=== PATIENT | female | born 1960 | race Caucasian/White ===

== ENCOUNTER → 2016-07-22 | Outpatient (CLI) | payer OTHER ==
[~2016-07-22] MED LIST: CEPH500C3 PO; ESTR1 PO; HYDR-2768 PO; LEVO25TA36 PO; SUMA100T2 PO
[2016-07-22 14:39] LABS: MEAN CELL VOLUME 78.2 FL (80.0-100.0); MEAN CORPUSCULAR HEMOGLOBIN 25.3 PG (27.0-34.0); MEAN CORPUSCULAR HGB CONC 32.3 % (32.0-36.0); PLATELET COUNT 408 TH/MM3 (150-450); RED BLOOD COUNT 4.73 MIL/MM3 (4.00-5.30); RED CELL DISTRIBUTION WIDTH 14.6 % (11.6-17.2); REVIEW FLAG FINAL; WHITE BLOOD COUNT 9.2 TH/MM3 (4.0-11.0)
[2016-07-22 15:02] LABS: ALKALINE PHOSPHATASE 98 U/L (45-117); HDL CHOLESTEROL 67.8 MG/DL (40.0-60.0); TOTAL BILIRUBIN ADULT 0.2 MG/DL (0.2-1.0)
[2016-07-22 15:07] LABS: ALT (GPT) 18 U/L (10-53); ANION GAP 10 MEQ/L (5-15); AST (GOT) 17 U/L (15-37); BICARBONATE 28.5 MEQ/L (21.0-32.0); BLOOD UREA NITROGEN 11 MG/DL (7-18); CHLORIDE 100 MEQ/L (98-107); GLOMERULAR FILTRATION RATE 79 ML/MIN (>89); GLUCOSE,FASTING 88 MG/DL (74-99); LDL CHOLESTEROL 138 MG/DL (0-99); POTASSIUM 3.9 MEQ/L (3.5-5.1); SODIUM (NA) 138 MEQ/L (136-145)
== END ==
LOC: CLAB 14:17
PROVIDERS: ATTEND Family Medicine
DX: E78.2 Mixed hyperlipidemia (principal); E03.9 Hypothyroidism, unspecified; I10 Essential (primary) hypertension; E66.9 Obesity, unspecified
CPT/HCPCS: 36415; 80053; 80061; 85027

== ENCOUNTER → 2017-01-26 | Day surgery (SDC) | payer OTHER ==
[~2017-01-26] MED LIST changes: +LACTATED RINGER'S 1000 ML INJ 1,000 ML ONE; +PROPOFOL 200 MG/20 ML AMP IV ONE
--- NOTE | 2017-01-26 12:52 | GIPROC ---
[facility] [address] [facility], [address] EGD PROCEDURE REPORT EXAM DATE: 01/26/2017 PATIENT NAME: Karol Cordero MR #: [id number] BIRTHDATE: 1960 ATTENDING: Stacy Champion MD ORDER #: [id number] SUPERVISOR DAIRY SANITATION: STATUS: outpatient INDICATIONS: The patient is a 56 yr old female here for an EGD due to dysphagia PROCEDURE PERFORMED: EGD w/ biopsy EGD w/ dilation of esophagus via guidewire MEDICATIONS: None and Per Anesthesia. TOPICAL ANESTHETIC: none CONSENT: The patient understands the risks and benefits of the procedure and understands that these risks include, but are not limited to: sedation, allergic reaction, infection, perforation and/or bleeding. Alternative means of evaluation and treatment include, among others: physical exam, x-rays, and/or surgical intervention. The patient elects to proceed with this endoscopic procedure. medical equipment was checked for proper function. Hand hygiene and appropriate measures for infection prevention was taken. After the risks, benefits and alternatives of the procedure were thoroughly explained, Informed consent was verified, confirmed and timeout was successfully executed by the treatment team. The patient was anesthetized with topical anesthesia and the EG-[id number] ([id number]) endoscope was introduced through the mouth and advanced to the second portion of the duodenum. Retroflexed views revealed a hiatal hernia The gastroscope was then slowly withdrawn and removed. Duodenitis duodenal bulb-biopsy gastrtiis antrum-biopsy irregular z line-biopsy spasm distal esophagus-. Dilatation using Savary dilator 17. ADVERSE EVENTS: There were no complications. IMPRESSIONS: 1. Duodenitis duodenal bulb-biopsy gastrtiis antrum-biopsy irregular z line-biopsy spasm distal esophagus- 2. Retroflexed views revealed a hiatal hernia RECOMMENDATIONS: 1. Await biopsy results. Biopsy results will not be ready for 7-10 days. If you don't hear from us in two weeks, call our office for biopsy results. 2. Anti-reflux regimen 3. Continue PPI 4. Start PPI 5. Dilatations PRN 6. If no improvement consider esophageal manometry PATIENT CONDITION: stable DISPOSITION: Home REPEAT EXAM: EGD pending biopsy results Stacy Champion MD eSigned: Stacy Champion MD 01/26/2017 12:51 PM cc: Cosme Amado [facility] Fide Perez M.D. PATIENT NAME: Karol Cordero MR#: [id number]
== END | disposition home or self-care (01) ==
LOC: ESDC 10:05
PROVIDERS: ATTEND Internal Medicine Gastroenterology
DX: R13.10 Dysphagia, unspecified (principal); K44.9 Diaphragmatic hernia without obstruction or gangrene; K29.80 Duodenitis without bleeding; K29.70 Gastritis, unspecified, without bleeding; K22.9 Disease of esophagus, unspecified; K22.4 Dyskinesia of esophagus
CPT/HCPCS: 00740; 43239; 43248; 88305; 88312; J3010; J7120

== ENCOUNTER → 2017-07-07 | Outpatient (CLI) | payer OTHER ==
[~2017-07-07] MED LIST changes: -LACTATED RINGER'S 1000 ML INJ 1,000 ML ONE; -PROPOFOL 200 MG/20 ML AMP IV ONE
[2017-07-07 08:11] LABS: BASOPHIL % 0.5 % (0.0-2.0); EOSINOPHIL # 0.2 TH/MM3 (0-0.4); EOSINOPHIL % 2.4 % (0.0-4.0); HEMATOCRIT 34.7 % (35.0-46.0); HEMOGLOBIN 11.8 GM/DL (11.6-15.3); LYMPH % 34.6 % (9.0-44.0); LYMPHOCYTE # 3.1 TH/MM3 (1.0-4.8); MEAN CELL VOLUME 80.7 FL (80.0-100.0); MEAN CORPUSCULAR HEMOGLOBIN 27.4 PG (27.0-34.0); MONO % 6.8 % (0.0-8.0); MONOCYTE # 0.6 TH/MM3 (0-0.9); NEUT % 55.7 % (16.0-70.0); PLATELET COUNT 361 TH/MM3 (150-450)
[2017-07-07 08:12] LABS: ALBUMIN 3.4 GM/DL (3.4-5.0); AST (GOT) 17 U/L (15-37); BICARBONATE 31.3 MEQ/L (21.0-32.0); BLOOD UREA NITROGEN 17 MG/DL (7-18); CALCIUM 8.9 MG/DL (8.5-10.1); CHLORIDE 104 MEQ/L (98-107); CHOLESTEROL 221 MG/DL (120-200); CREATININE 0.79 MG/DL (0.50-1.00); GLOMERULAR FILTRATION RATE 75 ML/MIN (>89); GLUCOSE,FASTING 95 MG/DL (74-99); SODIUM (NA) 140 MEQ/L (136-145)
[2017-07-07 08:15] LABS: ALKALINE PHOSPHATASE 91 U/L (45-117); ALT (GPT) 15 U/L (10-53); CHOLESTEROL/ HDL RATIO 3.99 RATIO; HDL CHOLESTEROL 55.3 MG/DL (40.0-60.0); LDL CHOLESTEROL 139 MG/DL (0-99); TOTAL BILIRUBIN ADULT 0.2 MG/DL (0.2-1.0); TOTAL PROTEIN 7.7 GM/DL (6.4-8.2); TRIGLYCERIDES 134 MG/DL (42-150)
== END ==
LOC: CLAB 07:39
PROVIDERS: ATTEND Family Medicine
DX: R73.02 Impaired glucose tolerance (oral) (principal); I10 Essential (primary) hypertension; E78.2 Mixed hyperlipidemia
CPT/HCPCS: 36415; 80053; 80061; 85025

== ENCOUNTER → 2017-07-14 | Outpatient (CLI) | payer OTHER ==
[~2017-07-14] MED LIST changes: +ESTR2TAB PO; +HYDR25TA5 PO; +IMIT100T PO; +LEVO50TA4 PO; +VENL25TA PO
[2017-07-14 13:05] LABS: BILIRUBIN, URINE NEG (NEG); BLOOD, URINE NEG (NEG); GLUCOSE,URINE NEG (NEG); KETONE, URINE NEG (NEG); NITRITE,URINE NEG (NEG); SQUAMOUS EPITHELIAL CELL URINE 1 /hpf (0-5); URINE COLOR LIGHT-YELLOW (YELLW/STRAW); URINE LEUKOCYTE ESTERASE NEG (NEG)
--- NOTE | 2017-07-15 22:13 | EKG ---
Date Performed: 07/14/2017 Time Performed: 12:14:50 PTAGE: 56 years EKG: Sinus rhythm . Possible anteroseptal infarct - age undetermined Low QRS voltages in precordial leads Abnormal ECG Compared to prior tracing no significant change DOCTOR: Dena Dalton Interpretating Date/Time 07/15/2017 22:13:13
== END ==
LOC: CPRE 11:07
PROVIDERS: ATTEND Obstetrics & Gynecology
DX: Z01.812 Encounter for preprocedural laboratory examination (principal); Z01.810 Encounter for preprocedural cardiovascular examination; N81.10 Cystocele, unspecified; R32 Unspecified urinary incontinence
CPT/HCPCS: 36415; 81001; 86850; 86900; 86901; 93005

== ENCOUNTER 2017-07-16 05:28 | Observation (INO) | payer OTHER ==
--- NOTE | 2017-07-14 10:40 | MH ---
cc: GEE VELASQUEZ JESSICA GOLDSTEIN DATE OF ADMISSION: 07/16/2017 DATE OF 1960 CHIEF COMPLAINT Recurrence of significant stress incontinence and bleeding from a residual cervix status post LASH and BSO. HISTORY OF PRESENT CONDITION The patient is a 56-year-old single white female, 1, para 1, status post a laparoscopically assisted supracervical hysterectomy with a TOT and cystocele repair. She later underwent a BSO (bilateral salpingo-oophorectomy). The surgeries were essentially uneventful, the last being in 2012. However, she has gradually developed a recurrence of her stress incontinence and has noted some bleeding from the remaining cervix. She is on 2 mg of estrogen p.o. daily. PAST MEDICAL HISTORY 1. Her general health is otherwise good. 2. She is anticipating a cholecystectomy in the near future. 3. She has hypothyroidism for which she takes Levothyroxine 30 mcg a day. 4. She takes Imitrex on an as-needed basis for headaches. 5. She is on venlafaxine for a mild depression. 6. Hydrochlorothiazide 25 mg daily. ALLERGIES LATEX. HABITS She does not smoke, drink or use illicit drugs. PRIMARY CARE PHYSICIAN Dr. Goldstein. REVIEW OF SYSTEMS Her incontinence is significant; she loses urine when she coughs, laughs or sneezes. She does not have nocturia, hematuria, pyuria or pain with urination. SOCIAL HISTORY She is not involved with anybody at this time. Currently she is living with her parents and helping to care for them. PHYSICAL EXAMINATION GENERAL: On physical she is a well-developed, well-nourished white female in no acute distress. VITAL SIGNS: Her weight is 175. Her height is 5'4", her blood pressure is 136/82. NECK: She had no thyroid enlargement. A slight diffuse swelling on the right side which has been stable for sometime. LUNGS: Clear to auscultation. HEART: Rate and rhythm are regular without murmur, heave or thrills. BREASTS: At a previous exam were without dominant mass, nipple discharge or skin retraction. ABDOMEN: Benign. She has no hernias. No hepatosplenomegaly. No CVA tenderness. She has no inguinal adenopathy. PELVIC: The perineum is well-estrogenized. The vault is fairly well elevated. The bladder comes down to about a second to third degree. The tape is in place without erosion or granulation tissue but the bladder descends directly behind the pain with any Valsalva. The cervix is multiparous without lesions. She had no significant rectocele. RECTAL: Guaiac was negative at a previous exam. No significant hemorrhoids. EXTREMITIES: Unremarkable. IMPRESSION Recurrence of stress urinary incontinence seven years after placement of a TOT. Spotting from the cervix left after a LASH. PLAN The plan is to proceed with laparoscopically assisted trachelectomy and revision of her cystocele and placement of a second transobturator tape using the Solyx method posterior to the one that is first in place. The risks, benefits and expectations have been discussed. She knows there is a risk of damage to bowel, bladder, blood vessels, there could be complications of medication and anesthesia up to and including . She understands that the laparoscope will be used to make sure that bowel was not adherent to the cervix which we have decided to remove. She understands that any tape can cause granulation, erosion and chronic pain and dyspareunia. She understands there is no guarantee that the tape will address her incontinence and has a slight risk of retention. She has signed consents and is scheduled for morning. MD ADRIAN Pablo/SSB /9:44 AM /10:04 AM
[~2017-07-16] VITALS: Ht 162.6 cm; Wt 80.0 kg
[~2017-07-16 05:28] MED LIST changes: -CEPH500C3 PO; -ESTR1 PO; -HYDR-2768 PO; -LEVO25TA36 PO; -SUMA100T2 PO
[2017-07-16] MEDS ORDERED: CHLORHEXIDINE GLUCONATE 2 % 1 PACK (2 CLOTHS) TOPICAL PRN (06:15)
[2017-07-16] MEDS ORDERED: ceFAZolin 2 GM PREMIX 50 ML IV SCH (06:15)
[2017-07-16] MEDS ORDERED: SODIUM CHLORID 0.9% 500 ML IV PRN (06:15)
[2017-07-16] MEDS ORDERED: POVIDONE IODINE 5% (ANTISEPSIS KIT) 4 APPLICATIONS EACH NARE PRN (06:15)
[2017-07-16] MEDS ORDERED: METOPROLOL TARTRATE 25 MG TAB PO PRN (06:15)
[2017-07-16] MEDS ORDERED: LACTATED RINGER'S 1000 ML IV PRN (06:15)
[2017-07-16] MEDS ORDERED: INSULIN HUMAN REGULAR 1,000 UNITS/10 ML VIAL SQ PRN (06:15)
[2017-07-16] MEDS ORDERED: BUPIVACAINE/EPINEPHRINE 0.25% PF 30 ML VIAL ONE (07:01)
[2017-07-16] MEDS ORDERED: ESTROGENS CONJUGATED VAG CREA 15 APPL/30 GM TUBE ONE (07:01)
[2017-07-16] MEDS ORDERED: VASOPRESSIN 20 UNITS/ML VIAL (IVTITR) ONE (07:01)
[2017-07-16] MEDS ORDERED: ceFAZolin INJ 1,000 MG VIAL ONE (07:02)
[2017-07-16] MEDS ORDERED: APREPITANT 40 MG CAP ONE (07:14)
[2017-07-16] MEDS ORDERED: ACETAMINOPHEN 1000 MG/100 ML 100 ML IV ONE (07:14)
--- NOTE | 2017-07-16 09:13 | PD.OP ---
Operative Report Date of Surgery: Jul 16, 2017 Preoperative Diagnosis: LINDA--recurrent pelvic pressure bleeding from cervical stump Postoperative Diagnosis: same Procedure: laparoscopic assisted trachelectomy enterocele obliteration TOT with solyx cystocoele repair cystoscopy Anesthesia: GET Surgeon: Anne Snow Take Away Man(s): OR staff Operation and Findings: Anne Carroll MD Jul 16, 2017 09:13
[2017-07-16] MEDS ORDERED: oxyCODONE/ACETAMINOPHEN 5 MG/325 MG TAB PO PRN ×2 (09:30)
[2017-07-16] MEDS ORDERED: LORazepam 0.5 MG TAB PO PRN (09:30)
[2017-07-16] MEDS ORDERED: ONDANSETRON HCL 4 MG/2 ML VIAL IVP PRN ×2 (09:30)
[2017-07-16] MEDS ORDERED: SODIUM CHLORIDE 0.9% FLUSH 10 ML FLUSH IV FLUSH PRN (09:30)
[2017-07-16] MEDS ORDERED: ZOLPIDEM TARTRATE 5 MG TAB PO PRN (09:30)
[2017-07-16] MEDS ORDERED: diphenhydrAMINE HCL 25 MG CAP PO PRN (09:30)
--- NOTE | 2017-07-16 09:30 | HHI.DCPOC ---
Discharge Care Plan Report Symptoms to Your Doctor -Temperature above 100.5 degrees -Redness, of incision or excessive or foul smelling drainage -Unusual pain or calf pain -Increased vaginal bleeding -Painful or difficulty urinating -Feelings of extreme sadness or anxiety after 2 weeks Goals to Promote Your Health * To prevent worsening of your condition and complications * To maintain your health at the optimal level Directions to Meet Your Goals Take your medications as prescribed Follow your dietary instruction Follow activity as directed Ensure plenty of rest for recovery Drink fluids for hydration Keep your appointments as scheduled Take your immunizations and boosters as scheduled If your symptoms worsen call your PCP, if no PCP go to Urgent Care Center or Emergency Room Smoking is Dangerous to Your Health. Avoid second hand smoke Call the 24-hour crisis hotline for domestic abuse at Anne Snow MD Jul 16, 2017 09:30
[2017-07-16] MEDS ORDERED: *HYDROmorphone PF 1 MG VIAL PERIprocedural Use ONLY ONE ×2 (09:38→09:54)
[2017-07-16] MEDS ORDERED: *RESP: ALBUTEROL 2.5 MG/3 ML NEB (PRN) PERIprocedural Use ONLY NEB ONE (09:39)
[2017-07-16] MEDS ORDERED: MIDAZOLAM HCL 2 MG/2 ML VIAL ONE (09:59)
[2017-07-16] MEDS: LACTATED RINGER'S 1000 ML INJ 1,000 ML IV SCH ×2 (10:00→18:03)
[2017-07-16] MEDS ORDERED: DO NOT ADM ANY ANTICOAGULANT DRUGS PRN (10:15)
[2017-07-16] MEDS ORDERED: MIDAZOLAM HCL 5 MG/5 ML VIAL ONE (10:18)
[2017-07-16] MEDS ORDERED: MIDAZOLAM HCL 2 MG/2 ML VIAL IV PUSH ONE (11:30)
[2017-07-16] MEDS ORDERED: MIDAZOLAM HCL 2 MG/2 ML VIAL IV PUSH PRN (11:40)
--- NOTE | 2017-07-16 12:24 | MP ---
cc: RONANNE DATE OF 1960 DATE OF PROCEDURE July 16, 2017. PREOPERATIVE DIAGNOSES 1. Stress urinary incontinence. 2. Cystocele. 3. Descent of the cervical stump and some bleeding from the cervical stump. POSTOPERATIVE DIAGNOSES 1. Stress urinary incontinence. 2. Cystocele. 3. Descent of the cervical stump and some bleeding from the cervical stump. PROCEDURE 1. Laparoscopically assisted trachelectomy. 2. Enterocele obliteration. 3. Transobturator tape using the Solyx single incision approach. 4. Cystocele repair. 5. Cystoscopy. ANESTHESIA General. SURGEON MD Ron AUTOMOTIVE COLLISION ESTIMATOR OR staff. FINDINGS Examination under anesthesia revealed a cervix that could be brought down to the fourchette, a second-degree urethrocele. Upon entering the peritoneal cavity, the cervix was not adherent to any tissues whatsoever so the approach was taken entirely vaginally, then the scope was removed. The cervix was removed with two bites on each side and sent for pathology. The enterocele was obliterated and the uterosacrals were plicated and the cavity closed with Vicryl in a running interlocking fashion. The vaginal mucosa was in the midline, dissected off the bladder beneath the pubic symphysis and the Solyx tape placed without difficulty. Cystoscopy was then performed which showed no iatrogenic injury or intrinsic pathology. There was good flow from both ureteral orifices and no visible tape or suture in the bladder. The plicating sutures were then placed underneath to the elevate the bladder and then the vaginal mucosa was closed. A repeat look with the laparoscope showed no evidence of iatrogenic injury or bleeding. Sponge, instrument and needle counts were correct well. Blood loss was 150 cc. She tolerated the procedure well and went to the recovery room stable. PROCEDURE The patient was counseled in preop. She was taken to the operating room, placed under general endotracheal anesthesia in the dorsal lithotomy position. Time-out was performed. She was prepped and draped in the usual sterile fashion. She had sequential stockings on. She had received 2 grams of Ancef IV. The Castellon was placed sterilely. Examination under anesthesia was performed and the cervix was grasped and acorn tenaculum placed into the intracervical os. Attention was directed to the abdomen with fresh gloves. A small incision was made just above where her umbilicus had been (she is status post abdominoplasty)and then the 5-mm trocar and sleeve were placed under direct visualization. The pneumoperitoneum was created, another 5-mm trocar and sleeve were placed in the right and left lower quadrant. Each one of these had infiltration of lidocaine prior to the incision and then transabdominal illumination was done to avoid the branches of the inferior epigastrics. Systematic evaluation of the abdominal and pelvic contents revealed what appeared to be a normal gallbladder, although we know otherwise, an absence of uterus, tubes and ovaries. The cervix was small, not attached to the bladder. The cul-de-sacs and the underside were clean. Decision was made to perform the trachelectomy entirely from below. The abdominal instruments were left in place. Attention was directed toward the perineum. A weighted speculum was placed. The anterior vagina was elevated. The cervix was grasped with single-tooth tenaculum, infiltrated with Marcaine with epi. It was circumcised with a Bovie on cutting and then the anterior and posterior cul-de-sacs were entered sharply. Curved Miguel clamps were used to grasp the uterosacrals which were clamped, cut, tied and tagged. A second pedicle was created on either side and the cervix was removed. The enterocele was obliterated and a dog ear of vaginal mucosa removed and then the peritoneal cavity was closed. The uterosacrals were plicated. The mucosa was then closed in a running interlocking fashion. Then Allis clamps were used to grasp 1 cm below the urethra and at the apex of the vagina and then an incision was made with Bovie on cutting through the mucosa. Gentle digital dissection was done to separate the mucosa from the underlying scarred bladder. This was taken underneath the symphysis on either side. The Solyx was opened and then attached to the introducer and placed through the right urogenital diaphragm without difficulty, directing it toward the right axilla and then on the left with the midline placed in the midline. It was flush against the urethra but not with any tension. A sponge was placed and then the Castellon catheter was removed. The 30-degree scope was placed into the bladder and systematic evaluation revealed an absence of entry into the bladder with any instrumentation and ureteral flow from both orifices. There was no evidence of interstitial cystitis. The scope was removed. The Castellon was replaced and the plicating sutures were placed to elevate the bladder. Then the vaginal mucosa was closed in a running interlocking fashion. Repeat cystoscopy was performed since we did have the scope and routine laparoscopy was performed and irrigation of the pelvic floor was done. The vaginal cuff was cleaned. The cul-de-sacs looked clean. There was no evidence of any other concerns. The pneumoperitoneum was released under direct visualization. The incisions were closed with a single suture of Monocryl. She was placed in dorsal supine position with a Castellon in place and taken to the recovery room in stable condition. Anne Snow MD PPC/SSB /9:12 AM /11:46 AM
[2017-07-16 12:30] VITALS: BP 111/59; PULSE 71; RESP 20; TEMP 97.6; O2SAT 96
[2017-07-16] MEDS: HYDROmorphone HCL PF 2 MG/ML VIAL IV PUSH PRN ×2 (13:47→18:03)
[2017-07-16] MEDS: IBUPROFEN 600 MG TAB PO PRN ×2 (15:35→20:57)
[2017-07-16 16:00] VITALS: BP 107/55; PULSE 104; RESP 18; TEMP 98; O2SAT 97
[2017-07-16] MEDS ORDERED: ONDANSETRON INJ 8 MG in DEXTROSE 5% IN WATER INJ 50 ML IV PUSH PRN ×2 (16:00)
[2017-07-16 20:00] VITALS: BP 106/64; PULSE 68; RESP 20; TEMP 97.5; O2SAT 96
[2017-07-16] MEDS: DOCUSATE SODIUM 100 MG CAP PO SCH (20:57)
[2017-07-16] MEDS ORDERED: SODIUM CHLORIDE 0.9% FLUSH 10 ML FLUSH IV FLUSH SCH (21:00)
[2017-07-17] VITALS: BP 99/52; PULSE 64; RESP 18; TEMP 97.9; O2SAT 96
[2017-07-17 04:00] VITALS: BP 98/51; PULSE 56; RESP 18; TEMP 97.7; O2SAT 98
[2017-07-17] MEDS: IBUPROFEN 600 MG TAB PO PRN ×2 (04:05→13:15)
[2017-07-17 06:14] LABS: BICARBONATE 29.4 MEQ/L (21.0-32.0); CALCIUM 8.9 MG/DL (8.5-10.1); CREATININE 0.74 MG/DL (0.50-1.00)
[2017-07-17 08:19] VITALS: BP 99/65; PULSE 58; RESP 16; TEMP 98.1; O2SAT 97
[2017-07-17 08:20] LABS: AUTOMATED NEUTROPHIL # 7.8 TH/MM3 (1.8-7.7); BASOPHIL % 0.3 % (0.0-2.0); EOSINOPHIL % 0.3 % (0.0-4.0); HEMATOCRIT 32.3 % (35.0-46.0); HEMOGLOBIN 10.7 GM/DL (11.6-15.3); LYMPH % 24.1 % (9.0-44.0); LYMPHOCYTE # 2.7 TH/MM3 (1.0-4.8); MEAN CELL VOLUME 81.4 FL (80.0-100.0); MEAN CORPUSCULAR HEMOGLOBIN 26.9 PG (27.0-34.0); MONO % 5.2 % (0.0-8.0); MONOCYTE # 0.6 TH/MM3 (0-0.9); NEUT % 70.1 % (16.0-70.0); PLATELET COUNT 307 TH/MM3 (150-450); RED BLOOD COUNT 3.97 MIL/MM3 (4.00-5.30); RED CELL DISTRIBUTION WIDTH 14.6 % (11.6-17.2); WHITE BLOOD COUNT 11.1 TH/MM3 (4.0-11.0)
--- NOTE | 2017-07-17 09:08 | HHI.OB ---
Subjective Post Operative Day: 1 Remarks Waiting to void doing well with no bleeding minimal discomfort Objective Vitals/I&O Vital Signs Date Time Temp Pulse Resp B/P (MAP) Pulse Ox O2 Delivery O2 Flow Rate FiO2 07/17/17 08:19 98.1 58 16 99/65 (76) 97 07/17/17 04:00 97.7 56 18 98/51 (67) 98 07/17/17 00:00 97.9 64 18 99/52 (68) 96 07/16/17 20:00 97.5 68 20 106/64 (78) 96 07/16/17 16:00 98.0 104 18 107/55 (72) 97 07/16/17 12:30 97.6 71 20 111/59 (76) 96 07/16/17 11:45 97.5 71 16 106/62 (77) 99 Nasal Cannula 2 07/16/17 11:30 68 16 108/60 (76) 98 Nasal Cannula 2 07/16/17 11:15 65 15 105/59 (74) 98 Nasal Cannula 2 07/16/17 11:00 63 15 110/58 (75) 98 Nasal Cannula 2 07/16/17 10:45 60 15 114/62 (79) 99 Nasal Cannula 2 07/16/17 10:30 63 15 117/58 (77) 99 Nasal Cannula 2 07/16/17 10:24 15 07/16/17 10:15 74 15 114/54 (74) 99 Nasal Cannula 2 07/16/17 10:08 15 07/16/17 10:00 85 15 128/59 (82) 98 Nasal Cannula 2 07/16/17 09:45 83 15 133/64 (87) 100 Nasal Cannula 3 07/16/17 09:30 98.4 90 15 139/71 (93) 99 Nasal Cannula 3 Intake & Output 07/17/17 07/17/17 07:00 19:00 Output Total 2200 ml Balance -2200 ml Output Urine Total 2200 ml Result Diagram: 07/17/17 0733 07/17/17 0456 Objective Remarks GENERAL: Well-nourished, well-developed patient. CARDIOVASCULAR: Regular rate and rhythm without murmurs, gallops, or rubs. RESPIRATORY: Breath sounds equal bilaterally. No accessory muscle use. ABDOMEN/GI: Abdomen soft, non-tender, bowel sounds present. Incision: Clean, dry and intact. Fundus: Firm, non-tender at umbilicus. GENITOURINARY: Light to moderate bleeding. EXTREMITIES: No cyanosis or edema, non-tender, without signs of DVT. Medications and IVs Current Medications Medications (Trade) Dose Ordered Sig/Robb Route Start Time Stop Time Status Last Admin Cefazolin Sodium/ Dextrose 50 ml @ 100 mls/hr DYNAMO REPAIRER IV 07/16/17 06:15 07/19/17 06:14 07/16/17 06:38 (Lopressor) 25 mg DYNAMO REPAIRER PRN PO 07/16/17 06:15 07/19/17 06:14 (Betadine 5% Antisepsis Kit) 1 applic DYNAMO REPAIRER PRN EACH NARE 07/16/17 06:15 07/19/17 06:14 (Chlorhexidine 2% Cloth) 3 pack DYNAMO REPAIRER PRN TOPICAL 07/16/17 06:15 07/19/17 06:14 07/16/17 06:00 Lactated Ringer's 1,000 ml @ 125 mls/hr Q8H IV 07/16/17 09:22 07/16/17 18:03 (NS Flush) 2 ml UNSCH PRN IV FLUSH 07/16/17 09:30 (NS Flush) 2 ml BID IV FLUSH 07/16/17 21:00 (Motrin) 600 mg Q6H PRN PO 07/16/17 09:30 07/17/17 04:05 (Percocet 5-325 Mg) 1 tab Q4H PRN PO 07/16/17 09:30 07/17/17 04:05 (Percocet 5-325 Mg) 2 tab Q4H PRN PO 07/16/17 09:30 07/17/17 00:08 (Benadryl) 25 mg Q6H PRN PO 07/16/17 09:30 (Colace) 100 mg Q12H PO 07/16/17 21:00 07/16/17 20:57 (Ambien) 5 mg HS PRN PO 07/16/17 09:30 (Ativan) 0.25 mg Q8H PRN PO 07/16/17 09:30 (Dilaudid Pf Inj) 0.5 mg Q4H PRN IV PUSH 07/16/17 09:30 07/16/17 18:03 Miscellaneous Information ALL NURSING DEPARTME... UNSCH PRN .XX 07/16/17 10:15 07/17/17 10:14 Ondansetron HCl 8 mg/Dextrose 54 ml @ 216 mls/hr Q8H PRN IV PUSH 07/16/17 16:00 Assessment/Plan Problem List: (1) Post-operative state ICD Codes: Z98.890 - Other specified postprocedural states Assessment and Plan just voided 400 and can be discharged when comfortable shower and ambulate first then home Anne Snow MD Jul 17, 2017 09:08
[2017-07-17] MEDS: DOCUSATE SODIUM 100 MG CAP PO SCH (09:52)
[2017-07-17] MEDS: LACTATED RINGER'S 1000 ML INJ 1,000 ML IV SCH (09:57)
[2017-07-17 11:00] VITALS: BP 113/62; PULSE 71
== END 2017-07-17 15:20 | disposition home or self-care (01) ==
LOC: HSDC 05:28 → HSDI 09:28 → H1EA 11:51
PROVIDERS: ADMIT Obstetrics & Gynecology; ATTEND Obstetrics & Gynecology
DX: N39.3 Stress incontinence (female) (male) (principal); N99.3 Prolapse of vaginal vault after hysterectomy; I10 Essential (primary) hypertension; E78.5 Hyperlipidemia, unspecified
CPT/HCPCS: 00860; 57240; 57288; 57530; 80048; 85025; 88305; 94664; 96374; 96376; C1771; G0378; J0131; J0690; J1170; J2250; J3010; J7120; J7613; J8501

== ENCOUNTER → 2017-08-12 | Day surgery (SDC) | payer OTHER ==
[~2017-08-12] VITALS: Ht 162.6 cm; Wt 78.6 kg
[~2017-08-12] MED LIST changes: +ACETAMINOPHEN 1000 MG/100 ML 100 ML IV PRN; +ACETAMINOPHEN/HYDROcodone 325 MG/5 MG TAB PO PRN; +BUPIVACAINE/EPINEPHRINE 0.25% 50 ML VIAL ONE; +CHLORHEXIDINE GLUCONATE 2 % 1 PACK (2 CLOTHS) TOPICAL PRN; +DEXAMETHASONE SOD PHOS 4 MG/ML VIAL IV ONE; +DO NOT ADM ANY ANTICOAGULANT DRUGS PRN; +ESMOLOL HCL 100 MG/10 ML VIAL IV ONE; +FAMOTIDINE 20 MG/2 ML VIAL ONE; +FISHCAP4 PO; +GLYCOPYRROLATE 1 MG/5 ML SYRINGE IV PUSH ONE; +HYDROmorphone HCL PF 2 MG/ML VIAL ONE; +KETOROLAC TROMETHAMINE 30 MG/ML (IVP) VIAL IV PUSH ONE; +LACTATED RINGER'S 1000 ML IV PRN; +METOPROLOL TARTRATE 25 MG TAB PO PRN; +MIDAZOLAM HCL 2 MG/2 ML VIAL ONE; +NEOSTIGMINE 5 MG/5 ML SYRINGE IV PUSH ONE; +ONDANSETRON HCL 4 MG/2 ML VIAL IV ONE; +ONDANSETRON HCL 4 MG/2 ML VIAL IV PUSH PRN; +PHENYLEPH/NS 1000 MCG/10 ML SYR IV ONE; +POVIDONE IODINE 5% (ANTISEPSIS KIT) 4 APPLICATIONS EACH NARE PRN; +PROPOFOL 200 MG/20 ML AMP IV ONE; +RESP: ALBUTEROL 2.5 MG/3 ML NEB (PRN) ONE; +REST0.05 EACH EYE; +ROCURONIUM INJ 50 MG/5 ML SYRINGE IV PUSH ONE; +SODIUM CHLORID 0.9% 500 ML IV PRN; +VANCOMYCIN 1 GM/200 ML PREMIX ON-CALL IV SCH; +VITA200013 PO; +[UNRECOGNIZED DRUG - CODE] PO; +ceFAZolin 1,000 MG/NS 100 ML IV SCH
[2017-08-12 07:22] LABS: AUTOMATED NEUTROPHIL # 5.3 TH/MM3 (1.8-7.7); BASOPHIL # 0.1 TH/MM3 (0-0.2); BASOPHIL % 0.7 % (0.0-2.0); EOSINOPHIL # 0.6 TH/MM3 (0-0.4); EOSINOPHIL % 7.1 % (0.0-4.0); HEMATOCRIT 38.1 % (35.0-46.0); HEMOGLOBIN 12.8 GM/DL (11.6-15.3); LYMPH % 26.6 % (9.0-44.0); LYMPHOCYTE # 2.4 TH/MM3 (1.0-4.8); MEAN CELL VOLUME 80.7 FL (80.0-100.0); MEAN CORPUSCULAR HEMOGLOBIN 27.1 PG (27.0-34.0); MEAN CORPUSCULAR HGB CONC 33.6 % (32.0-36.0); MEAN PLATELET VOLUME 7.8 FL (7.0-11.0); MONO % 5.4 % (0.0-8.0); MONOCYTE # 0.5 TH/MM3 (0-0.9); NEUT % 60.2 % (16.0-70.0); PLATELET COUNT 341 TH/MM3 (150-450); RED BLOOD COUNT 4.72 MIL/MM3 (4.00-5.30); RED CELL DISTRIBUTION WIDTH 14.6 % (11.6-17.2); WHITE BLOOD COUNT 8.9 TH/MM3 (4.0-11.0)
[2017-08-12 07:45] LABS: ALBUMIN 3.4 GM/DL (3.4-5.0); BICARBONATE 26.8 MEQ/L (21.0-32.0); CALCIUM 9.5 MG/DL (8.5-10.1); CREATININE 0.74 MG/DL (0.50-1.00); DIRECT BILIRUBIN ADULT 0.1 MG/DL (0.0-0.2)
[2017-08-12 07:48] LABS: INDIRECT BILIRUBIN 0.1 MG/DL (0.0-0.8); TOTAL BILIRUBIN ADULT 0.2 MG/DL (0.2-1.0); TOTAL PROTEIN 7.8 GM/DL (6.4-8.2)
--- NOTE | 2017-08-12 09:34 | HHI.PR ---
cc: Stacy Champion MD; Geoffrey Austin MD; Maycol Perez MD Immediate Post Op Note Procedure Date: Aug 12, 2017 Pre Op Diagnosis: Gallstones with biliary colic Fatty liver changes Post Op Diagnosis: Same Surgeon: Geoffrey Austin [employer]gr[employer] Location Manager(s): SAMAN Funes Procedure: Laparoscopic cholecystectomy Laparoscopic Silverio-cut liver biopsy Complications: None Specimen(s) removed: Gallbladder and contents Silverio-cut liver biopsy cores Estimated blood loss: 50 ml Anesthesia: General Drains: None IVF (1000 ml) Patient to: PACU Patient Condition: Good Date/Time of Procedure: SEE SURGICAL CARE RECORD Geoffrey Austin MD Aug 12, 2017 09:34
--- NOTE | 2017-08-12 10:47 | RADRPT ---
EXAM DATE/TIME: 08/12/2017 09:44 [place] COMPARISON: No previous studies available for comparison. INDICATIONS : Evaluate for aspiration. Patient short of breath post lap cholecystectomy. MEDICAL HISTORY : None. SURGICAL HISTORY : None. ENCOUNTER: Initial ACUITY: 1 day PAIN SCORE: 0/10 LOCATION: Bilateral FINDINGS: A single view of the chest demonstrates the lungs to be symmetrically aerated without evidence of mas s, infiltrate or effusion. The cardiomediastinal contours are unremarkable. Osseous structures are intact. CONCLUSION: No acute disease. Andreas Spaulding MD FACR on August 12, 2017 at 10:45 Board Certified Radiologist. This report was verified electronically.
--- NOTE | 2017-08-12 11:40 | MP ---
cc: MEDARDO GARCIA M.D., ANTHONY BRATU, BEATRICE S. M.D. DATE OF SURGERY 08/12/2017 PROCEDURE 1. Laparoscopic cholecystectomy. 2. Laparoscopic Silverio-Cut liver biopsy. PREOPERATIVE DIAGNOSIS Gallstones with biliary colic. POSTOPERATIVE DIAGNOSIS Gallstones with biliary colic. ANESTHESIA General endotracheal. SURGEON Norman. HAND BOOTMAKER SAMAN Funes. ESTIMATED BLOOD LOSS 50 mL. FLUIDS 1000 mL crystalloid. COMPLICATIONS None. DRAINS None. SPECIMEN Gallbladder and contents and Silverio-Cut liver biopsies x2 to pathology. PROCEDURE IN DETAIL The patient was taken to the operating room and placed on the operating table in the supine position. After an adequate level of general endotracheal anesthesia was achieved the abdomen was prepped and draped in the usual fashion. A timeout was taken confirming the correct patient, site and procedure to be performed. An incision was made above the patient's neoumbilicus utilizing her previous incision. Dissection was carried down to the fascia which was slit in the midline. The rectus muscles were and the posterior fascia elevated and incised. The peritoneal cavity was directly visualized. A 12 mm balloon trocar was inserted and the balloon inflated. The abdomen was insufflated. The patient was placed in reverse Trendelenburg position. Three 5 mm trocars were then placed with the first to the right of falciform and second and third in the right subcostal region. All entered the abdominal cavity under direct vision uneventfully. The fundus of the gallbladder was grasped and retracted up and over the dome of liver. The cystic duct infundibular junction and cystic artery were both circumferentially dissected. The cystic artery was doubly clipped proximally, singly clipped on the gallbladder side and divided. A cholangiogram was not obtained as the patient had a 6 mm common duct, normal liver function tests, and anatomy was clearly identified. The cystic duct was then doubly clipped distally, singly clipped on the gallbladder side and divided. The gallbladder was dissected off of the liver bed with electro-dissection. The gallbladder was placed into an EndoCatch device and removed via the umbilical port while observing via the upper 5 mm trocar site. The liver bed was made hemostatic. The cystic artery stump and cystic duct stump were both reexamined and found to be hemostatic as well. At this point a Silverio-Cut needle was brought in via separate stab incision and two cores of tissue were taken from the medial segment of the left lobe of the liver. These were submitted in formalin for specimen analysis. The two biopsy sites were made hemostatic. All irrigation was aspirated from the abdominal cavity. Insufflation was discontinued and the upper abdominal trocars removed under direct vision. During desufflation there was no bleeding noted. The laparoscope and supraumbilical port were removed. The fascia was closed in two layers with 0 Vicryl suture and a simple interrupted fashion. When this was completed, a total of 30 mL of 0.25% Marcaine with epinephrine was injected into each of the trocar sites with the majority being placed in the supraumbilical incision site. The skin was closed at all sites with 4-0 Vicryl in an interrupted buried fashion except for the stab incision for the Silverio-Cut needle. All sites including this one were dressed with Steri-Strips. The patient was extubated and taken back to the recovery room in stable condition. She tolerated the procedure well. MD ELIDIA Powers/FARHAN /9:39 AM /11:14 AM
[2017-08-12 13:20] VITALS: BP 121/69; PULSE 82; RESP 20; TEMP 97.2; O2SAT 97
== END | disposition home or self-care (01) ==
LOC: HSDC 05:41
PROVIDERS: ATTEND Surgery Trauma Surgery
DX: K80.10 Calculus of gallbladder with chronic cholecystitis without obstruction (principal); K76.0 Fatty (change of) liver, not elsewhere classified; R06.02 Shortness of breath
CPT/HCPCS: 00790; 47001; 47562; 71045; 80048; 80076; 85025; 88304; 88307; 88313; J0131; J0690; J1170; J2250; J2405; J3010; J3370; J7120; J7613; J1100; J1885; J2370; J2710